=== PATIENT | female | born 1995 | race Caucasian/White ===

== ENCOUNTER → 2018-01-24 | Outpatient (CLI) | payer BC ==
[~2018-01-24] MED LIST: ACHD5005 PO; AMPH20CA5 PO; DEXT10TA9 PO; DOCU-143 PO; MELA1TAB15 PO
--- NOTE | 2018-01-24 16:00 | Diagnostic Imaging Report ---
INDICATION: Pelvic pain and recent IUD placement. TECHNIQUE: Transabdominal and transvaginal pelvic sonography was performed. FINDINGS: The uterus measures 5.5 x 3.9 x 3.1 cm. The endometrium is 8 mm in thickness. The IUD appears to be appropriately centered within the endometrium. No myometrial mass is identified. The right ovary measures 3.8 x 2.3 x 2.2 cm, and the left ovary measures 2.5 x 2.5 x 1.1 cm. Both ovaries contain multiple follicles. There is blood flow to both ovaries. The right ovary does contain a 2.2 cm cyst. There is some free fluid in the posterior cul-de-sac, which may be physiologic. IMPRESSION: 1. IUD appears to be appropriately centered in the endometrial canal. 2. 2.2 cm simple right ovarian cyst. Dictated by: Dictated on workstation # [id number]
== END ==
LOC: RAD 14:34
PROVIDERS: ATTEND Nurse Practitioner Family
DX: N83.291 Other ovarian cyst, right side (principal); Z97.5 Presence of (intrauterine) contraceptive device
CPT/HCPCS: 76830; 76856